=== PATIENT | female | born 1945 | race Caucasian/White ===

== ENCOUNTER 2017-03-03 08:52 | Emergency (ER) | payer SELFPAY ==
[~2017-03-03] VITALS: Ht 162.6 cm; Wt 68.0 kg
[2017-03-03 08:56] VITALS: BP 143/78
--- NOTE | 2017-03-03 09:12 | NUR ---
Patient was taken to bed 05 via wheelchiar per triage nurse.
--- NOTE | 2017-03-03 09:13 | NUR ---
Dr. Chris evaluating patient at bedside.
[2017-03-03] MEDS ORDERED: NITROGLYCERIN 2% 1 GM PKT TP ONE (09:15)
[2017-03-03] MEDS ORDERED: ASPIRIN 81 MG TAB.CHEW PO ONE ×2 (09:15→09:25)
[2017-03-03] MEDS ORDERED: NACL 0.9% 1,000 ML IV ONE (09:15)
[2017-03-03] MEDS ORDERED: MORPHINE SULFATE 2 MG/ML SYR IVP ONE (09:15)
[2017-03-03] MEDS ORDERED: ASPIRIN 81 MG TAB.CHEW ONE (09:16)
[2017-03-03] MEDS ORDERED: MORPHINE SULFATE 4 MG/ML SYR ONE (09:17)
--- NOTE | 2017-03-03 09:24 | NUR ---
PT BIB FAMILY S/P MECHANICAL FALL AT HOME, PT FELL THIS AM AND LANDED ON HER RIGHT SIDE, C/O RIGHT SIDED PAIN EXTENDING FROM RIGHT SHOULDER DOWN TO RIGHT LEG. HX HTN, DM.PT IS AAOX4;UNLABORED BREATHING W/SYMMETRICAL CHEST EXPANSION;ALL MONITORS IN PLACED;HOB ELEVATED;O2 AT 2 LPM;IV ESTABLISHED;SAFETY MEASURES DONE;MD AT BEDSIDE.
--- NOTE | 2017-03-03 09:26 | NUR ---
XRAY at bedside.
[2017-03-03 09:32] LABS: BASOPHILS # (AUTO) 0.3 K/uL (0.00-0.22); BASOPHILS % (AUTO) 1.8 % (0.0-2.0); EOSINOPHILS # (AUTO) 0.3 K/uL (0-0.4); EOSINOPHILS % (AUTO) 1.9 % (0.0-4.0); HEMATOCRIT 39.4 % (36-48); HEMOGLOBIN 13.3 g/dL (12.0-16.0); LYMPHOCYTES # (AUTO) 0.8 K/uL (2.5-16.5); LYMPHOCYTES % (AUTO) 5.6 % (20.5-51.1); MEAN CORPUSCULAR HEMOGLOBIN 28 pg (27-31); MEAN CORPUSCULAR HGB CONC 34 g/dL (33-37); MEAN CORPUSCULAR VOLUME 81 fL (80-94); MONOCYTES # (AUTO) 0.3 K/uL (0.8-1.0); MONOCYTES % (AUTO) 2.3 % (1.7-9.3); NEUTROPHILS # (AUTO) 13.3 K/uL (1.8-7.7); NEUTROPHILS % (AUTO) 88.4 % (42.2-75.2); PLATELET COUNT (AUTO) 177 K/uL (140-450); RED BLOOD CELL COUNT(AUTO) 4.83 MIL/uL (4.20-5.40); RED CELL DISTRIBUTION WIDTH 12.9 % (11.6-13.7)
[2017-03-03 09:51] LABS: INR 1.1 (0.8-1.2); PARTIAL THROMBOPLASTIN TIME 22.9 secs (22-35.6); PROTHROMBIN TIME 10.1 secs (10.8-13.4)
--- NOTE | 2017-03-03 09:51 | NUR ---
[facility] at bedside preparing patient for transport.
[2017-03-03 09:52] LABS: ALBUMIN 3.7 g/dL (3.4-5.0); ANION GAP 17.5 (8-16); CALCIUM 9.4 mg/dL (8.5-10.1); CARBON DIOXIDE 23.4 mmol/L (21-32); CREATININE 1.2 mg/dL (0.6-1.3); POTASSIUM 4.9 mmol/L (3.5-5.1); TOTAL BILIRUBIN 0.9 mg/dL (0.0-1.0); TOTAL PROTEIN, SERUM 7.4 g/dL (6.4-8.2)
--- NOTE | 2017-03-03 09:52 | NUR ---
Patient to be transferred to [facility]. Is being transferred due tO ACUTE INFERIOR STEMI. Receiving facility has accepting physician and available space. ER physician has signed transfer form. Patient or responsible green party has agreed to transfer and signed form. Patient belongings inventoried and will be sent with patient. Copy of nursing notes, lab reports, EKG, Physicians Orders and X-rays to be sent with patient. Report called to ANGELA VALDOVINOS at receiving facility.[facility] ambulance service has been called for transfer.
[2017-03-03 09:54] VITALS: BP 129/78
--- NOTE | 2017-03-03 10:04 | NUR ---
LAB CALLED INFORMED PT'S BS IS 429.INFORMED EMS OF THE RESULT.
== END 2017-03-03 10:04 | disposition short-term general hospital (02) ==
LOC: MED 08:52
DX: S82.61XA Displaced fracture of lateral malleolus of right fibula, initial encounter for closed fracture (principal); E11.9 Type 2 diabetes mellitus without complications; I21.19 ST elevation (STEMI) myocardial infarction involving other coronary artery of inferior wall; I10 Essential (primary) hypertension; W18.39XA Other fall on same level, initial encounter; Y93.89 Activity, other specified; Y92.89 Other specified places as the place of occurrence of the external cause; Y99.8 Other external cause status
CPT/HCPCS: 36415; 71010; 73610; 80053; 82948; 84484; 85025; 85610; 85730; 93005; 96361; 96374; 99291; J2270; J7030; Q0092